=== PATIENT | female | born 1975 | race Caucasian/White ===

== ENCOUNTER → 2017-05-31 | Outpatient (CLI) | payer BC ==
--- NOTE | 2017-06-01 11:30 | MM ---
Reason for exam: screening (asymptomatic). Last mammogram was performed 1 year and 8 months ago. History: Family history of breast cancer in paternal grandmother. Taking hormonal contraceptives for 4 years. Physical Findings: A clinical breast exam by your physician is recommended on an annual basis and results should be correlated with mammographic findings. MG Screening Mammo w CAD Bilateral CC and MLO view(s) were taken. Prior study comparison: October 02, 2015, bilateral MG screening mammo w CAD. The breast tissue is heterogeneously dense. This may lower the sensitivity of mammography. Partially obscured, partially circumscribed focal asymmetry 9-10 o'clock left breast middle depth not clearly seen previously. ASSESSMENT: Incomplete: need additional imaging evaluation, BI-RAD 0 RECOMMENDATION: Special view mammogram and ultrasound of the left breast. [facility] will attempt to contact patient to return for supplemental views and ultrasound.
== END | disposition home or self-care (01) ==
LOC: RADMAMWWP 16:21
PROVIDERS: ATTEND Obstetrics & Gynecology
DX: Z12.31 Encounter for screening mammogram for malignant neoplasm of breast (principal)
CPT/HCPCS: 77067

== ENCOUNTER → 2017-06-11 | Outpatient (CLI) | payer BC ==
--- NOTE | 2017-06-14 12:08 | MM ---
Reason for exam: additional evaluation requested from abnormal screening. Last mammogram was performed less than 1 month ago. History: Family history of breast cancer in paternal grandmother. Taking hormonal contraceptives for 4 years. Physical Findings: Nurse did not find any significant physical abnormalities on exam. MG Work Up Mamm w CAD LT LM view(s) were taken of the left breast. Prior study comparison: May 31, 2017, bilateral MG screening mammo w CAD. October 02, 2015, bilateral MG screening mammo w CAD. The breast tissue is heterogeneously dense. This may lower the sensitivity of mammography. The previously seen upper inner quadrant left mass persists on additional views and corresponds to a sonographic suspicious mass. These results were verbally communicated with the patient and result sheet given to the patient on 06/11/17. ASSESSMENT: Suspicious, BI-RAD 4 RECOMMENDATION: Ultrasound core biopsy of the left breast. Called Dr. Fish with mammographic findings and has scheduled an appointment for the patient for 07/22/17 at 8:[address] Alvarenga. Biopsy scheduled for 07/05/17 at 12:20. PRELIMINARY REPORT CALLED AND FAXED TO DR. ALVARENGA ON 06/14/17.
--- NOTE | 2017-06-14 12:11 | USB ---
Reason for exam: additional evaluation requested from abnormal screening. History: Family history of breast cancer in paternal grandmother. Taking hormonal contraceptives for 4 years. US Breast Workup Limited LT Left breast ultrasound demonstrates a 0.7 x 0.5 x 0.4cm oval, solid, mixed lesion at 10 o'clock, edge shadowing, corresponds to the new mammographic finding. These results were verbally communicated with the patient and result sheet given to the patient on 06/11/17. ASSESSMENT: Suspicious, BI-RAD 4 RECOMMENDATION: Ultrasound core biopsy of the left breast. Called Dr. Fish with mammographic findings and has scheduled an appointment for the patient for 07/22/17 at 8:[address] Alvarenga. Biopsy scheduled for 07/05/17 at 12:20. PRELIMINARY REPORT CALLED AND FAXED TO DR. ALVARENGA ON 06/14/17.
== END | disposition home or self-care (01) ==
LOC: RADMAMWWP 13:38
PROVIDERS: ATTEND Obstetrics & Gynecology
DX: R92.8 Other abnormal and inconclusive findings on diagnostic imaging of breast (principal)
CPT/HCPCS: 77065

== ENCOUNTER → 2018-03-23 | Outpatient (CLI) | payer BC ==
[2018-03-23 16:40] LABS: Basophils # (A) 0.1 k/uL (0-0.2); Basophils % (A) 1 %; Eosinophils # (A) 0.1 k/uL (0-0.7); Eosinophils % (A) 2 %; HCT 42.3 % (34.0-46.0); HGB 13.5 gm/dL (11.4-16.0); Lymphocytes # (A) 2.3 k/uL (1.0-4.8); Lymphocytes % (A) 36 %; MCH 29.9 pg (25.0-35.0); MCHC 31.9 g/dL (31.0-37.0); MCV 93.6 fL (80.0-100.0); Mean Platelet Volume 7.3; Monocytes # (A) 0.3 k/uL (0-1.0); Monocytes % (A) 5 %; Neutrophils # (A) 3.4 k/uL (1.3-7.7); Neutrophils % (A) 54 %; Platelet Count 439 k/uL (150-450); RBC 4.52 m/uL (3.80-5.40); RDW 12.3 % (11.5-15.5); WBC 6.4 k/uL (3.8-10.6)
== END | disposition home or self-care (01) ==
LOC: LABPAT 15:59
PROVIDERS: ATTEND Obstetrics & Gynecology
DX: Z01.812 Encounter for preprocedural laboratory examination (principal); N93.8 Other specified abnormal uterine and vaginal bleeding; Z64.0 Problems related to unwanted pregnancy
CPT/HCPCS: 36415; 85025

== ENCOUNTER 2018-04-01 07:16 | Day surgery (SDC) | payer BC ==
[2018-03-30 14:48] VITALS: BMI 29.4
[~2018-04-01 07:16] MED LIST: DEXAMETHASONE SOD PHOSPHATE 10 MG/ML 1 ML VIAL IV ONE; LACTATED RINGERS 1,000 ML IV SCH; LIDOCAINE 1% 20 ML VIAL (10MG/ML) FOR IV START INTRADERMA PRN; MIDAZOLAM 2 MG/2 ML VIAL IV PRN; ONDANSETRON 4 MG/2 ML VIAL IVP ONE; Pre Op ABX Message 1 EACH MISC MISCELLANE ONE; SCOPOLAMINE 1.5MG/72HR PATCH TRANSDERM ONE
[2018-04-01] MEDS ORDERED: SUCCINYLCHOLINE CHLORIDE 100 MG/5 ML SYR IV ONE (09:00)
[2018-04-01] MEDS ORDERED: LIDOCAINE 1% INJ 10MG/ML (20 ML MDV) ONE (09:00)
[2018-04-01] MEDS ORDERED: MIDAZOLAM 2 MG/2 ML VIAL ONE (09:00)
[2018-04-01] MEDS ORDERED: PROPOFOL 10 MG/ML 20 ML VIAL IV ONE (09:00)
[2018-04-01] MEDS ORDERED: fentaNYL (PF) 50 MCG/ML 2 ML AMP ONE (09:00)
[2018-04-01] MEDS ORDERED: HYDROmorphone (PF) 1 MG/ML ONE (09:00)
[2018-04-01] MEDS ORDERED: KETOROLAC 30 MG/ML 1 ML VIAL ONE (09:00)
[2018-04-01] MEDS ORDERED: BUPIVACAIN-EPI 0.5%-1:200,000 30 ML VIAL SQ ONE ×3 (09:05→09:49)
[2018-04-01] MEDS ORDERED: IBUPROFEN 600 MG TAB PO PRN (09:49)
[2018-04-01] MEDS ORDERED: KETOROLAC 30 MG/ML 1 ML VIAL IVP PRN (09:49)
[2018-04-01] MEDS ORDERED: diphenhydrAMINE 50 MG/ML 1 ML VIAL IVP PRN (09:49)
[2018-04-01] MEDS ORDERED: Acetaminophen-Codeine 300-30mg TAB PO PRN ×2 (09:49)
[2018-04-01] MEDS ORDERED: ONDANSETRON 4 MG/2 ML VIAL IVP PRN (09:49)
[2018-04-01] MEDS ORDERED: METOCLOPRAMIDE 5 MG/ML 2 ML VIAL IVP PRN (09:49)
[2018-04-01] MEDS ORDERED: SIMETHICONE 80 MG CHEWABLE PO PRN (09:49)
[2018-04-01] MEDS ORDERED: LACTATED RINGERS 1,000 ML IV SCH (10:00)
--- NOTE | 2018-04-01 10:01 | P.OP ---
Date of Procedure: 04/01/18 Preoperative Diagnosis: #1. Menometrorrhagia #2. Undesired fertility Postoperative Diagnosis: Same Procedure(s) Performed: #1. IUD removal #2. Laparoscopic bilateral tubal occlusion with Filshie clips #3. Diagnostic hysteroscopy with NovaSure endometrial ablation Anesthesia: VERO Surgeon: Aly Fish Estimated Blood Loss (ml): 5 IV fluids (ml): 600 Urine output (ml): 20 Pathology: none sent Condition: stable Disposition: PACU Operative Findings: Preoperative pelvic examination inserted a 4-5 week anteverted mobile normal shaped uterus with normal adnexa bilaterally. The IUD string was apparent. Intraoperatively, the findings using the laparoscope were of an entirely normal pelvis with a normal uterus, tubes, and ovaries bilaterally. There was no evidence of any pathology to include endometriosis. The appendix appeared normal as did the small and large bowel. The liver, diaphragm, and gallbladder all appeared normal as well. Using the hysteroscope, there was no pathology seen within the uterine cavity. The bilateral tubal ostia were seen. There was a slightly heart-shaped fundus. The uterus sounded to 8 cm with a roughly 3 cm cervix. The settings for the NovaSure tool where a length of 5.0 cm, a width of 3.6 cm for a total power of 99 W. The cavity check was passed without difficulty. After total run time of 71 seconds, the base unit read "procedure complete." The postprocedural result appeared to be excellent. The patient is a borderline candidate for vaginal hysterectomy at best and might be better served, should it be necessary, with a da Monse approach. Description of Procedure: The patient was prepped and draped in usual fashion after general endotracheal anesthesia was administered by the anesthesiologist. A weighted speculum was placed and the anterior lip of cervix grasped with single-tooth tenaculum. The IUD was removed with a ring forceps without difficulty and discarded. An acorn cannula was placed for manipulation of the uterus. The bladder had previously been drained of approximately 20 mL of clear cameron urine. Attention was turned to the abdomen where a 5 mm incision was made in the vertical fold of the umbilicus allowing insertion of a 5 mm optical trocar under direct visual station without difficulty. A pneumoperitoneum was established and Trendelenburg positioning utilized. A site was selected approximate 4-5 cm above the pubic symphysis in the midline where an 8 mm incision was made in the transverse plane allowing insertion of an 8 mm trocar under direct visualization without difficulty. The blunt probe was utilized to sweep the bowel from the pelvis and the findings are as noted above. The probe was replaced with a Filshie clip applicator which was utilized to place a Filshie clip firmly across the entire thickness of fallopian tube on the right side approximately 2 cm from the cornu of the uterus. A similar operation was carried out on the left side without difficulty. The applicator was removed in favor of the probe and the remainder the abdomen reexamined and no cigarette of confinement were noted. The pneumoperitoneum was then evacuated through the ports and the ports removed. The skin incisions were closed with interrupted subcuticular stitches of 4-0 Vicryl. Each incision was then infused with a approximately 5 mL of half percent bupivacaine with epinephrine. Attention was then returned to the vagina where a weighted speculum was placed and the acorn cannula removed. The uterus was sounded to 8 cm with a cervical length of 3 cm. Serial dilation was carried out to admit the diagnostic hysteroscope which was placed into the uterine cavity and the findings are as noted above. Both tubal ostia were seen and there was no significant pathology though the uterus was slightly heart-shaped. After adequate hysteroscopy had been performed, the scope was removed and set aside and the NovaSure tool placed to the fundus of the uterus and opened completely. After it was seated well, the settings were a length of 5.0 cm, a width of 3.6 cm for a total power of 99 W. The cavity check was attempted and passed without difficulty. The tool was enabled and the run was started. After a run time of 71 seconds, the tool disengaged and the base unit read "procedure complete.". The tool was removed and discarded. The diagnostic scope was replaced and the endometrial cavity with an excellent result as noted above. All instrumentation was then removed. One small point of bleeding at the tenaculum site was made hemostatic with pressure. Estimated blood loss for the entire case was 5 mL or less. There were no complications. All sponge, instrument, and needle counts were correct. The patient tolerated the procedure well and proceeded to the recovery room in stable condition.
[2018-04-01 10:08] VITALS: RESP 16; TEMP 97.4
[2018-04-01] MEDS: HYDROmorphone 0.5 MG/0.5 ML SYRINGE IVP PRN ×2 (10:27→10:31)
[2018-04-01] MEDS ORDERED: Acetaminophen-Codeine 300-30mg TAB PO ONE (11:21)
[2018-04-01 11:30] VITALS: BP 129/79; PULSE 84
== END 2018-04-01 12:02 | disposition home or self-care (01) ==
LOC: OR 07:16
PROVIDERS: ATTEND Obstetrics & Gynecology
DX: Z30.2 Encounter for sterilization (principal); N92.1 Excessive and frequent menstruation with irregular cycle; Z79.3 Long term (current) use of hormonal contraceptives
CPT/HCPCS: 81025; 58301; 58671; 58563; J2250; J1100; J2405; J2001; J3010; J1885; J1170 ×2; J0330; J2704

== ENCOUNTER → 2019-05-04 | Outpatient (CLI) | payer BC ==
--- NOTE | 2019-05-05 14:05 | MM ---
Reason for exam: screening (asymptomatic). Last mammogram was performed 1 year and 11 months ago. History: Family history of breast cancer in paternal grandmother. Taking hormonal contraceptives for 4 years. Physical Findings: A clinical breast exam by your physician is recommended on an annual basis and results should be correlated with mammographic findings. MG Screening Mammo w CAD Bilateral CC and MLO view(s) were taken. XCCL view(s) were taken of the right breast. Prior study comparison: June 11, 2017, left breast MG work up mamm w CAD LT. May 31, 2017, bilateral MG screening mammo w CAD. The breast tissue is heterogeneously dense. This may lower the sensitivity of mammography. There is no discrete abnormality. No significant changes when compared with prior studies. ASSESSMENT: Negative, BI-RAD 1 RECOMMENDATION: Routine screening mammogram of both breasts in 1 year.
== END | disposition home or self-care (01) ==
LOC: RADMAMWWP 15:30
PROVIDERS: ATTEND Family Medicine
DX: Z12.39 Encounter for other screening for malignant neoplasm of breast (principal)
CPT/HCPCS: 77067

== ENCOUNTER → 2020-05-14 | Outpatient (CLI) | payer BC ==
--- NOTE | 2020-05-17 10:31 | MM ---
Reason for exam: screening (asymptomatic). Last mammogram was performed 1 year ago. History: Family history of breast cancer in paternal grandmother. Benign ultrasound-guided core biopsy, 2018. Taking hormonal contraceptives for 4 years. Physical Findings: A clinical breast exam by your physician is recommended on an annual basis and results should be correlated with mammographic findings. MG Screening Mammo w CAD Bilateral CC and MLO view(s) were taken. Prior study comparison: May 04, 2019, bilateral MG screening mammo w CAD. June 11, 2017, left breast MG work up mamm w CAD LT. The breast tissue is heterogeneously dense. This may lower the sensitivity of mammography. Previous mammotome biopsy in the left breast with associated benign and stable mass. No significant changes when compared with prior studies. ASSESSMENT: Benign, BI-RAD 2 RECOMMENDATION: Routine screening mammogram of both breasts in 1 year.
== END | disposition home or self-care (01) ==
LOC: RADMAMWWP 15:02
PROVIDERS: ATTEND Obstetrics & Gynecology
DX: Z12.31 Encounter for screening mammogram for malignant neoplasm of breast (principal)
CPT/HCPCS: 77067

== ENCOUNTER → 2022-10-09 | Outpatient (CLI) | payer BC ==
--- NOTE | 2022-10-12 08:19 | MM ---
Reason for Exam: Screening (asymptomatic). Last mammogram was performed 2 year(s) and 5 month(s) ago. Patient History: Menarche at age 13. First Full-Term at age 31. Late child-bearing (after 31). Patient has history of breast feeding. Patient used Hormonal Contraceptives for 4 years. Benign Ultrasound-Guided Core Biopsy. Paternal grandmother had breast cancer. Risk Values: Donya 5 year model risk: 1.7%. NCI Lifetime model risk: 15.3%. Prior Study Comparison: 06/11/2017 Left Diagnostic Mammogram, [facility]. 05/04/2019 Bilateral Screening Mammogram, [facility]. 05/14/2020 Bilateral Screening Mammogram, [facility]. Tissue Density: The breast tissue is heterogeneously dense. This may lower the sensitivity of mammography. Findings: Analyzed By CAD. There is a new area of distortion left 12:00 position approximately 6 cm from the nipple. Additional views are recommended. Right breast is free of mass. No suspicious microcalcifications are present. Overall Assessment: Incomplete: need additional imaging evaluation, BI-RAD 0 Management: Diagnostic Mammogram of the left breast. . Patient should continue monthly self-breast exams. A clinical breast exam by your physician is recommended on an annual basis. This exam should not preclude additional follow-up of suspicious palpable abnormalities. Note on Donya scores and lifetime risk: 1. A Donya score greater than 3% is considered moderate risk. If this is the case, consider specialist referral to assess eligibility for a risk reducing agent. 2. If overall lifetime risk for the development of breast cancer is 20% or higher, the patient may qualify for future screening with alternating mammogram and breast MRI. Electronically signed and approved by: Sanford Arce M.D. Radiologis
== END | disposition home or self-care (01) ==
LOC: RADMAMWWP 16:14
PROVIDERS: ATTEND Obstetrics & Gynecology
DX: Z12.31 Encounter for screening mammogram for malignant neoplasm of breast (principal); Z80.3 Family history of malignant neoplasm of breast
CPT/HCPCS: 77067

== ENCOUNTER → 2022-10-14 | Outpatient (CLI) | payer BC ==
--- NOTE | 2022-10-14 11:26 | MM ---
Reason for Exam: Additional evaluation requested from abnormal screening. Last screening mammogram was performed less than 1 month ago. Patient History: Menarche at age 13. First Full-Term at age 31. Late child-bearing (after 30). Patient has history of breast feeding. Patient used Hormonal Contraceptives for 4 years. Benign Ultrasound-Guided Core Biopsy. Paternal grandmother had breast cancer. Risk Values: Donya 5 year model risk: 1.7%. NCI Lifetime model risk: 15.3%. Prior Study Comparison: 05/04/2019 Bilateral Screening Mammogram, [facility]. 05/14/2020 Bilateral Screening Mammogram, [facility]. 10/09/2022 Bilateral MG screening mammo w CAD, [facility]. Tissue Density: Left: The breast tissue is heterogeneously dense. This may lower the sensitivity of mammography. Findings: Analyzed By CAD. Area of fibroglandular tissue in the left breast compresses out on spot compression imaging. No new suspicious masses, calcifications or distortions. Overall Assessment: Benign, BI-RAD 2 Management: Screening Mammogram of both breasts in 1 year. Results were given to the patient verbally at the time of exam. Patient should continue monthly self-breast exams. A clinical breast exam by your physician is recommended on an annual basis. This exam should not preclude additional follow-up of suspicious palpable abnormalities. Note on Donya scores and lifetime risk: 1. A Donya score greater than 3% is considered moderate risk. If this is the case, consider specialist referral to assess eligibility for a risk reducing agent. 2. If overall lifetime risk for the development of breast cancer is 20% or higher, the patient may qualify for future screening with alternating mammogram and breast MRI. Electronically signed and approved by: Maikel Iyer DO
== END | disposition home or self-care (01) ==
LOC: RADMAMWWP 10:27
PROVIDERS: ATTEND Obstetrics & Gynecology
DX: R92.8 Other abnormal and inconclusive findings on diagnostic imaging of breast (principal); Z80.3 Family history of malignant neoplasm of breast
CPT/HCPCS: 77061; 77065

== ENCOUNTER → 2023-10-26 | Outpatient (CLI) | payer BC ==
--- NOTE | 2023-10-28 09:57 | MM ---
Reason for Exam: Screening (asymptomatic). Last screening mammogram was performed 12 month(s) ago. Patient History: Menarche at age 13. First Full-Term at age 31. Late child-bearing (after 30). Premenopausal. Patient has history of breast feeding. Patient used Hormonal Contraceptives for 4 years. Benign Ultrasound-Guided Core Biopsy. Paternal grandmother had breast cancer. Risk Values: Donya 5 year model risk: 1.7%. NCI Lifetime model risk: 15.0%. Prior Study Comparison: 05/14/2020 Bilateral Screening Mammogram, [facility]. 10/09/2022 Bilateral MG screening mammo w CAD, [facility]. 10/14/2022 Left MG 3D work up w/cad , [facility]. Tissue Density: The breasts are heterogeneously dense, which may obscure small masses. Findings: Analyzed By CAD. There is no suspicious group of microcalcifications or new suspicious mass in either breast. Overall Assessment: Benign, BI-RAD 2 Management: Screening Mammogram of both breasts in 1 year. . Patient should continue monthly self-breast exams. A clinical breast exam by your physician is recommended on an annual basis. This exam should not preclude additional follow-up of suspicious palpable abnormalities. Note on Donya scores and lifetime risk: 1. A Donya score greater than 3% is considered moderate risk. If this is the case, consider specialist referral to assess eligibility for a risk reducing agent. 2. If overall lifetime risk for the development of breast cancer is 20% or higher, the patient may qualify for future screening with alternating mammogram and breast MRI. Electronically signed and approved by: Sanford Arce M.D. Radiologis
== END | disposition home or self-care (01) ==
LOC: RADMAMWWP 13:01
PROVIDERS: ATTEND Obstetrics & Gynecology
DX: Z12.31 Encounter for screening mammogram for malignant neoplasm of breast (principal); R92.333 Mammographic heterogeneous density, bilateral breasts; Z80.3 Family history of malignant neoplasm of breast; Z92.0 Personal history of contraception
CPT/HCPCS: 77067

== ENCOUNTER → 2024-10-03 | Outpatient (CLI) | payer BC ==
--- NOTE | 2024-10-03 18:05 | MM ---
Reason for Exam: Screening (asymptomatic). Last screening mammogram was performed 12 month(s) ago. Patient History: Menarche at age 13. First Full-Term at age 31. Late child-bearing (after 30). Premenopausal. Patient has history of breast feeding. Patient used Hormonal Contraceptives for 4 years. Benign Ultrasound-Guided Core Biopsy. Paternal grandmother had breast cancer. Risk Values: Donya 5 year model risk: 1.7%. NCI Lifetime model risk: 15.0%. Prior Study Comparison: 10/09/2022 Bilateral MG screening mammo w CAD, [facility]. 10/14/2022 Left MG 3D work up w/cad LT, [facility]. 10/26/2023 Bilateral MG screening mammo w CAD, [facility]. Tissue Density: The breasts are heterogeneously dense, which may obscure small masses. Findings: Analyzed By CAD. Some areas of asymmetric density have become more pronounced due to patient's interval weight loss. However, no persisting abnormality is seen on 3-D images. Microclip left breast from prior biopsy. There is no suspicious group of microcalcifications or new suspicious mass in either breast. Overall Assessment: Benign, BI-RAD 2 Management: Screening Mammogram of both breasts in 1 year. Patient should continue monthly self-breast exams. A clinical breast exam by your physician is recommended on an annual basis. This exam should not preclude additional follow-up of suspicious palpable abnormalities. Note on Donya scores and lifetime risk: 1. A Donya score greater than 3% is considered moderate risk. If this is the case, consider specialist referral to assess eligibility for a risk reducing agent. 2. If overall lifetime risk for the development of breast cancer is 20% or higher, the patient may qualify for future screening with alternating mammogram and breast MRI. [facility], , 10/03/2024 6:03 PM. Electronically signed and approved by: Nabil Cowan M.D. Radiologist
== END | disposition home or self-care (01) ==
LOC: RADMAMWWP 09-25 12:54
PROVIDERS: ATTEND Obstetrics & Gynecology
DX: Z12.31 Encounter for screening mammogram for malignant neoplasm of breast (principal); R92.333 Mammographic heterogeneous density, bilateral breasts; Z92.0 Personal history of contraception; Z80.3 Family history of malignant neoplasm of breast
CPT/HCPCS: 77063; 77067